=== PATIENT | female | born 1995 | race Caucasian/White ===

== ENCOUNTER 2023-03-08 15:38 | Outpatient (CLI) | payer BC, SELFPAY ==
[2023-03-08 15:49] LABS: Basophils Percent Auto 0.5 % (0.2-1.2); Eosinophils Absolute Auto 0.1 K/mm3 (0-0.3); Eosinophils Percent Auto 1.2 % (0-4.4); Hematocrit 39.4 % (37.0-47.0); Hemoglobin 12.8 g/dL (12.0-15.0); Immature Granulocyte Absolute 0.02 K/mm3 (0.00-0.031); Immature Granulocyte Percent A 0.2 % (0-0.5); Lymphocytes Absolute Auto 1.99 K/mm3 (0.9-3.2); Lymphocytes Percent Auto 22.6 % (18.3-44.2); Mean Corpuscular HGB Conc 32.5 g/dl (32-36); Mean Corpuscular Hemoglobin 27.1 pg (26-34); Mean Corpuscular Volume 83.5 fl (80-100); Mean Platelet Volume 9.2 fl (7.4-10.4); Monocytes Absolute Auto 0.6 K/mm3 (0.1-0.6); Monocytes Percent Auto 6.8 % (2.6-8.5); Neutrophils Absolute Auto 6.1 K/mm3 (1.3-6.7); Neutrophils Percent Auto 68.7 % (45.5-73.1); Platelet Count Result 428 k/mm3 (150-375); Red Blood Count 4.72 M/mm3 (4.2-5.4); Red Cell Distribution Width 15.9 % (11.5-14.5); White Blood Count 8.8 K/mm3 (4.5-10.0)
[2023-03-08 16:59] LABS: Alanine Aminotransferase 16 U/L (6-35); Albumin Level 4.4 g/dL (3.5-5.1); Alkaline Phosphatase 108 U/L (38-126); Anion Gap 4 mmol/L (8-16); Aspartate Amino Transferase 24 U/L (14-36); Bilirubin,Total 0.4 mg/dL (0.2-1.3); Blood Urea Nitrogen 12 mg/dL (7-17); CRP 1.6 mg/dL (<1.0); Calcium 8.8 mg/dL (8.4-10.2); Carbon Dioxide 31 mmol/L (22-30); Chloride 104 mmol/L (98-107); Estimated Glomerular Filt Rate > 60; Glucose 93 mg/dL (65-110); Potassium 4.3 mmol/L (3.4-5.0); Sodium 139 mmol/L (137-145)
[2023-03-08 17:12] LABS: Erythrocyte Sedimentation Rate 8 mm/hr (0-20)
[2023-03-08 17:32] LABS: Ferritin 6.57 ng/mL (6.24-137)
== END 2023-03-08 15:39 | disposition home or self-care (01) ==
LOC: ANHLAB 15:40
PROVIDERS: PCP Family Medicine; Visit Provider Internal Medicine Hematology & Oncology
DX: D75.838 Other thrombocytosis (principal)
CPT/HCPCS: 36415; 80053; 82728; 85025; 85652; 86140

== ENCOUNTER 2023-07-10 16:56 | Emergency (ER) | payer OTHER, SELFPAY ==
[2023-07-10 17:09] VITALS: BP 101/78; PULSE 104; RESP 16; TEMP 37.6; O2SAT 99
--- NOTE | 2023-07-10 17:13 | ED.URI ---
HPI - URI/Sore Throat General Chief Complaint: Upper Respiratory Infection Stated Complaint: Covid Time Seen by Provider: 07/10/23 17:15 Source: patient Mode of arrival: ambulatory Limitations: no limitations History of Present Illness HPI Narrative: Patient is a 27-year-old female who presents with congestion, fever, chills, body aches since yesterday. Patient tested positive for COVID yesterday and is requesting Paxlovid along with work note. Patient has had COVID in the past and is vaccinated. Denies any shortness of breath. Has been taking Tylenol and ibuprofen. 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 and has had exposure to COVID Related Data Home Medications Medication Instructions Recorded Confirmed biotin 10 mg-collagen 50 1 cap PO .qd 10/20/22 10/20/22 mg-keratin 500 pe-ydstnudzhlo-dlossua capsule buspirone 5 mg tablet 5 mg PO .PRN 10/20/22 10/20/22 escitalopram oxalate 20 mg tablet 20 mg PO DAILY 10/20/22 10/20/22 multivitamin (Daily Multi-Vitamin 1 tablet PO DAILY 10/20/22 10/20/22 tablet) dextroamphetamine-amphetamine ER PO 07/10/23 07/10/23 15 mg 24hr capsule,extend release Allergies Allergy/AdvReac Type Severity Reaction Status Date / Time No Known Allergies Allergy Unverified 07/10/23 17:32 Review of Systems Review of Systems: All systems reviewed & are unremarkable except as noted in HPI and below Constitutional: Constitutional: Reports body ache(s), Reports chills, Denies fatigue, Reports fever(s), Denies headache(s), Denies malaise and Denies weakness Eyes: Eyes: Denies blurry vision, Denies itchy eyes and Denies loss of vision ENT: Denies otalgia, Denies headache(s), Reports nasal congestion, Denies sinus pain and Denies sore throat Cardiovascular: Cardiovascular: Denies chest pain, Denies irregular heart rhythm and Denies dyspnea Respiratory: Respiratory: Denies cough and Denies dyspnea Gastrointestinal: Gastrointestinal: Denies abdominal pain, Denies diarrhea, Denies nausea and Denies vomiting Musculoskeletal: Musculoskeletal: Denies back pain, Denies myalgias and Denies arthralgias Integumentary/Breasts: Skin/Breast: Denies pruritus and Denies rash Neurologic: Denies headache(s), Denies loss of vision and Denies weakness Psychiatric: Psychiatric: Reports no additional psychiatric complaints Endocrine: Endocrine: Denies fatigue Allergic/Immunologic: Allergic/Immunologic: Denies itchy eyes PMFSH Past Medical History Medical History ADHD Anxiety Depression History of PCOS Surgical History Surgical History [place] teeth extracted (~2017) Family History Family History Father Hypertension Cerebrovascular accident Skin cancer Grandparent Hypertension Cerebrovascular accident Family history of heart disease in male family member before age 55 Diabetes mellitus Alcohol abuse Renal cancer Sibling Depression Other Family history of attention deficit hyperactivity disorder (ADHD) Family history of cardiovascular disease Social History Social History Smoking status: Never smoker Alcohol intake: current Alcohol use details: rarely Substance use: never Substance use type: does not use Lack of Transportation: No Lack of Food: Never True Current Housing: I Have Housing Concerned About Future Housing: No Difficulty Paying Gas/Electric Bills: No Difficulty Paying for Meds: No Currently Unemployed: No Education: Associate Degree Difficulty w/ Childcare or Family Care: No Living arrangements: with family Additional living arrangements comments: and son Occupation/Education: occupation Additional occupation/education comments: [employer] Gender identity (if verbalized by the patient): Female Sexual [place]
== END 2023-07-10 17:38 | disposition home or self-care (01) ==
PROVIDERS: Emergency Provider Nurse Practitioner Family
DX: U07.1 COVID-19 (principal); E28.2 Polycystic ovarian syndrome; F90.9 Attention-deficit hyperactivity disorder, unspecified type; F41.9 Anxiety disorder, unspecified; F32.A Depression, unspecified
CPT/HCPCS: 99213; G0463

== ENCOUNTER 2023-12-07 14:06 | Outpatient (CLI) | payer OTHER, SELFPAY ==
[2023-12-07 18:15] LABS: Basophils Percent Auto 0.5 % (0.2-1.2); Eosinophils Absolute Auto 0.2 K/mm3 (0-0.3); Eosinophils Percent Auto 1.9 % (0-4.4); Hematocrit 41.8 % (37.0-47.0); Hemoglobin 13.6 g/dL (12.0-15.0); Immature Granulocyte Absolute 0.01 K/mm3 (0.00-0.031); Immature Granulocyte Percent A 0.1 % (0-0.5); Lymphocytes Percent Auto 23.9 % (18.3-44.2); Mean Corpuscular HGB Conc 32.5 g/dl (32-36); Mean Corpuscular Hemoglobin 29.4 pg (26-34); Mean Corpuscular Volume 90.5 fl (80-100); Mean Platelet Volume 9.8 fl (7.4-10.4); Monocytes Absolute Auto 0.5 K/mm3 (0.1-0.6); Monocytes Percent Auto 5.6 % (2.6-8.5); Neutrophils Absolute Auto 5.7 K/mm3 (1.3-6.7); Platelet Count Result 427 k/mm3 (150-375); Red Blood Count 4.62 M/mm3 (4.2-5.4); Red Cell Distribution Width 13.2 % (11.5-14.5); White Blood Count 8.4 K/mm3 (4.5-10.0)
[2023-12-07 18:22] LABS: Alanine Aminotransferase 14 U/L (6-35); Albumin Level 4.1 g/dL (3.5-5.1); Alkaline Phosphatase 101 U/L (38-126); Amylase 81 U/L (30-110); Anion Gap 7 mmol/L (8-16); Aspartate Amino Transferase 35 U/L (14-36); Bilirubin,Total 0.3 mg/dL (0.2-1.3); Blood Urea Nitrogen 11 mg/dL (7-17); Calcium 8.9 mg/dL (8.4-10.2); Carbon Dioxide 30 mmol/L (22-30); Chloride 105 mmol/L (98-107); Estimated Glomerular Filt Rate > 60; Glucose 89 mg/dL (65-110); Lipase 83 U/L (23-300); Potassium 4.2 mmol/L (3.4-5.0); Sodium 142 mmol/L (137-145)
[2023-12-07 18:33] LABS: Hemoglobin A1C 4.8 % (<5.7)
[2023-12-13 05:52] LABS: Immunoglobulin A 186 mg/dL (47-310); TTG IGA AB <1.0 U/mL (<15.0)
== END 2023-12-07 14:07 | disposition home or self-care (01) ==
LOC: ANHGOSHLAB 14:08
PROVIDERS: PCP Family Medicine; Visit Provider Nurse Practitioner Family
DX: K52.9 Noninfective gastroenteritis and colitis, unspecified (principal); R10.11 Right upper quadrant pain; R11.14 Bilious vomiting; Z13.29 Encounter for screening for other suspected endocrine disorder; R73.03 Prediabetes
CPT/HCPCS: 36415; 80053; 82150; 82248; 82784; 83036; 83690; 84443; 85025; 86364

== ENCOUNTER 2023-12-14 12:56 | Outpatient (CLI) | payer OTHER, SELFPAY ==
--- NOTE | ~2023-12-14 | NM_ITS ---
EXAMINATION: NM hepatobiliary wo pharm DATE: 12/14/2023 15:27 INDICATION: Right upper quadrant abdominal pain. COMPARISON: None. TECHNIQUE: 4.9 mCi Tc-99m mebrofenin (Choletec) was administered intravenously. Scintigraphic images of the abdomen were obtained for one hour. Then, the patient drank 8 oz Ensure, and imaging was cont inued for 60 minutes. FINDINGS: There is normal clearance of radiotracer from the blood pool. There is homogeneous tracer u ptake by the liver. Activity progresses to the bowel and gallbladder. Gallbladder ejection fraction (GBEF) was 63%. Note that with this technique, normal GBEF >= 33%. IMPRESSION: 1. Normal hepatobiliary scintigraphy. Reviewed, dictated and finalized at location A. [facility]
== END 2023-12-14 12:57 | disposition home or self-care (01) ==
PROVIDERS: PCP Family Medicine; Visit Provider Nurse Practitioner Family
DX: K52.9 Noninfective gastroenteritis and colitis, unspecified (principal); R11.14 Bilious vomiting; R10.11 Right upper quadrant pain
CPT/HCPCS: 78226; A9537

== ENCOUNTER 2024-06-03 16:39 | Emergency (ER) | payer OTHER, SELFPAY ==
[2024-06-03 16:47] VITALS: BP 107/80; PULSE 99; RESP 16; TEMP 36.4; O2SAT 100
[2024-06-03 16:53] VITALS: BP 107/80; PULSE 99; RESP 16; TEMP 36.4; O2SAT 100
--- NOTE | 2024-06-03 16:54 | ED.NAVMDI ---
HPI - Nausea/Vomiting/Diarrhea General Chief complaint: Nausea/Vomiting/Diarrhea Stated complaint: VOMITING Time Seen by Provider: 06/03/24 16:57 Source: patient, RN notes reviewed and old records reviewed Mode of arrival: ambulatory Limitations: no limitations History of Present Illness HPI Narrative: 28-year-old female to [facility] with complaint intermittent nausea and vomiting that has become increasingly worse for the past 3 days. Patient states that she had her 1st increase of tirzepatide (for weight loss) 4 days ago. patient states that 3 days ago she had nausea with 3 episodes of vomiting. Patient reports that 2 days ago she had nausea without vomiting and that yesterday as she had nausea with 3 episodes of vomiting. patient reports that today she woke up from her sleep with nausea and vomiting at 2:00 a.m. and that she has been unable to keep anything down today. Patient states last urinary output at 6:00 a.m. today. Patient states she attempted to treat at home with Zofran but that the sensation of having it under her tongue increased her nausea and vomiting. Patient denies abdominal pain, flank pain, urinary changes, bowel changes, dizziness, headache, weakness. Respirations even and nonlabored in exam room. Patient smiling and appears pleasant during conversation with spouse during exam. no acute distress. Related Data Home Medications Medication Instructions Recorded Confirmed multivitamin (Daily Multi-Vitamin 1 tablet PO DAILY 10/20/22 04/23/24 tablet) dextroamphetamine-amphetamine 15 15 mg PO DAILY 01/02/24 04/23/24 mg tablet (Adderall) aripiprazole 10 mg tablet mg 06/03/24 Allergies Allergy/AdvReac Type Severity Reaction Status Date / Time No Known Allergies Allergy Verified 06/03/24 16:46 Review of Systems Review of Systems: All systems reviewed & are unremarkable except as noted in HPI and below Constitutional: Constitutional: Reports no additional constitutional complaints Eyes: Eyes: Reports no additional eye complaints ENT: Reports system reviewed and no additional complaints, except as documented Cardiovascular: Cardiovascular: Reports no additional cardiovascular complaints, Denies chest pain and Denies dyspnea Respiratory: Respiratory: Reports no additional respiratory complaints, Denies cough and Denies dyspnea Gastrointestinal: Gastrointestinal: Reports as per HPI, Denies abdominal pain, Denies belching, Denies bloating, Denies change in bowel habits, Denies constipation, Denies dysphagia, Denies diarrhea, Reports nausea, Reports vomiting and Denies hematemesis Musculoskeletal: Musculoskeletal: Reports no additional musculoskeletal complaints Neurologic: Reports system reviewed and no additional complaints, except as documented Psychiatric: Psychiatric: Reports no additional psychiatric complaints COUNTS INCLUDE 234 BEDS AT THE [facility] Past Medical History Medical History (Updated 06/03/24 @ 17:51 by Chandni Dinh APRN) ADHD Anxiety Bright red blood per rectum Chronic diarrhea Depression History of PCOS IBS (irritable bowel syndrome) Insulin resistance syndrome Nausea PCOS (polycystic ovarian syndrome) RUQ abdominal pain Vomiting bile Surgical History Surgical History [place] teeth extracted (~2017) Family History Family History Father Hypertension Cerebrovascular accident Skin cancer Grandparent Hypertension Cerebrovascular accident Family history of heart disease in male family member before age 55 Diabetes mellitus Alcohol abuse Renal cancer Sibling Depression Other Family history of attention deficit hyperactivity disorder (ADHD) Family history of cardiovascular disease Social History Social History Smoking status: Never smoker Alcohol intake: current Alcohol use details: rarely Subst
[2024-06-03] MEDS: ONDANSETRON HCL ODT 4 MG TABLET PO (17:38)
== END 2024-06-03 18:25 | disposition short-term general hospital (02) ==
PROVIDERS: Emergency Provider Nurse Practitioner Family; PCP Nurse Practitioner Family
DX: R11.2 Nausea with vomiting, unspecified (principal); T38.3X5A Adverse effect of insulin and oral hypoglycemic [antidiabetic] drugs, initial encounter; F90.9 Attention-deficit hyperactivity disorder, unspecified type; E28.2 Polycystic ovarian syndrome
CPT/HCPCS: 99213; A9270; G0463

== ENCOUNTER 2024-06-03 18:52 | Emergency (ER) | payer OTHER, SELFPAY ==
--- NOTE | ~2024-06-03 | CT_ITS ---
EXAMINATION: CT abdomen pelvis w con DATE: 06/04/2024 00:46 INDICATION: Lower abdominal pain and leukocytosis nausea and vomiting TECHNIQUE: Computed tomography (CT) of the abdomen and pelvis was performed with 100 mL Omnipaque-350 intravenous contrast. Automated exposure control and iterative reconstruction technique were employe d. The dose-length product was 305.99 mGy-cm. COMPARISON: None FINDINGS: 4 mm nodule at the lingula. Heart size is normal. No pericardial or pleural effusion. Liver, gallblad corina, spleen, pancreas, bilateral adrenal glands and kidneys are normal. There is mild colonic diverti culosis with a sigmoid predominance. There is no adjacent inflammatory change to suggest diverticuli tis . Small bowel and appendix are normal. Bladder, uterus and bilateral adnexa are unremarkable with 2 cm dominant follicle at the right ovary. No free intraperitoneal gas or fluid. No pathologically e nlarged abdominal or pelvic lymphadenopathy. Bones are unremarkable. IMPRESSION: 1. No acute intra-abdominal/pelvic process. Reviewed, dictated and finalized at location A.
[2024-06-03 19:03] VITALS: BP 106/65; PULSE 112; RESP 18; TEMP 36.4; O2SAT 100
[2024-06-03 20:41] LABS: Basophils Percent Auto 0.2 % (0.2-1.2); Hemoglobin 16.4 g/dL (12.0-15.0); Immature Granulocyte Absolute 0.03 K/mm3 (0.00-0.031); Immature Granulocyte Percent A 0.2 % (0-0.5); Lymphocytes Absolute Auto 1.13 K/mm3 (0.9-3.2); Lymphocytes Percent Auto 8.7 % (18.3-44.2); Mean Corpuscular HGB Conc 34.9 g/dl (32-36); Mean Corpuscular Hemoglobin 30.5 pg (26-34); Mean Corpuscular Volume 87.4 fl (80-100); Mean Platelet Volume 9.9 fl (7.4-10.4); Monocytes Absolute Auto 0.4 K/mm3 (0.1-0.6); Monocytes Percent Auto 3.1 % (2.6-8.5); Neutrophils Absolute Auto 11.3 K/mm3 (1.3-6.7); Neutrophils Percent Auto 87.8 % (45.5-73.1); Platelet Count Result 425 k/mm3 (150-375); Red Blood Count 5.38 M/mm3 (4.2-5.4); Red Cell Distribution Width 13.5 % (11.5-14.5); White Blood Count 12.9 K/mm3 (4.5-10.0)
[2024-06-03 20:52] LABS: Alanine Aminotransferase 12 U/L (6-35); Albumin Level 5.3 g/dL (3.5-5.1); Alkaline Phosphatase 93 U/L (38-126); Anion Gap 20 mmol/L (4-12); Aspartate Amino Transferase 24 U/L (14-36); Bilirubin,Total 0.8 mg/dL (0.2-1.3); Blood Urea Nitrogen 7 mg/dL (7-17); Calcium 9.9 mg/dL (8.4-10.2); Carbon Dioxide 20 mmol/L (22-30); Chloride 100 mmol/L (98-107); Estimated CRCL calculation 88 ml/min; Estimated Glomerular Filt Rate > 60; Glucose 71 mg/dL (65-110); Lipase 91 U/L (23-300); Potassium 4.5 mmol/L (3.4-5.0); Sodium 140 mmol/L (137-145)
[2024-06-03 20:53] LABS: Appearance Urine Cloudy (Clear); Bacteria Urine 4+ /hpf; Bilirubin Urine Negative (Negative); Blood Urine 1+ (Negative); Budding Yeast Urine Present /hpf; Color Urine Yellow (Yellow); Glucose Urine UA Negative (Negative); Hyaline Casts Urine Present /lpf; Ketones Urine 4+ mg/dL (Negative); Leukocyte Esterase Ur 1+ LEU/UL (Negative); Need Manual Microscopic Reviewed; Nitrate Urine Negative (Negative); Protein Urine 1+ mg/dL (Negative); Specific Grav Ur 1.024 (1.001-1.035); Squamous Epithelial Cell Urine Moderate /hpf (Few); WBC Urine 21-50 /hpf (0-3); pH Urine 5.5 (5.0-9.0)
[2024-06-03 20:56] LABS: Add Urine Microscopic? YES
[2024-06-03 23:00] VITALS: BP 119/86; PULSE 108; RESP 26; O2SAT 99
--- NOTE | 2024-06-03 23:02 | ED.NAVMDI ---
HPI - Nausea/Vomiting/Diarrhea General Chief complaint: Nausea/Vomiting/Diarrhea Stated complaint: nausea, vomiting Time Seen by Provider: 06/03/24 22:24 Source: patient Mode of arrival: ambulatory Limitations: no limitations History of Present Illness HPI Narrative: Patient is a 28-year-old female who presents the ED with report of nausea, vomiting. Patient reports she is on Zepbound for weight loss. She has been on this for the last 1 month and had her dose increased on Sunday. She developed nausea and vomiting initially after her dose, which has persisted throughout the weekend. She has been unable to keep any food or drink today. Reports diffuse abdominal cramping. Reports diarrhea this morning, denies rectal bleeding or melena. Denies fevers. Denies known sick contacts. Related Data Home Medications Medication Instructions Recorded Confirmed multivitamin (Daily Multi-Vitamin 1 tablet PO DAILY 10/20/22 04/23/24 tablet) dextroamphetamine-amphetamine 15 15 mg PO DAILY 01/02/24 04/23/24 mg tablet (Adderall) aripiprazole 10 mg tablet mg 06/03/24 Allergies Allergy/AdvReac Type Severity Reaction Status Date / Time No Known Allergies Allergy Verified 06/03/24 23:02 Review of Systems Review of Systems: CONSTITUTIONAL: Denies fever, chills, or sweats. GASTROINTESTINAL: See HPI. GENITOURINARY: Denies dysuria or hematuria. All systems reviewed & are unremarkable except as noted in HPI and below PMFSH Past Medical History Medical History ADHD Anxiety Bright red blood per rectum Chronic diarrhea Depression History of PCOS IBS (irritable bowel syndrome) Insulin resistance syndrome Nausea PCOS (polycystic ovarian syndrome) RUQ abdominal pain Vomiting bile Surgical History Surgical History [place] teeth extracted (~2017) Family History Family History Father Hypertension Cerebrovascular accident Skin cancer Grandparent Hypertension Cerebrovascular accident Family history of heart disease in male family member before age 55 Diabetes mellitus Alcohol abuse Renal cancer Sibling Depression Other Family history of attention deficit hyperactivity disorder (ADHD) Family history of cardiovascular disease Social History Social History Smoking status: Never smoker Alcohol intake: current Alcohol use details: rarely Substance use: never Substance use type: does not use Lack of Transportation: No Lack of Food: Never True Current Housing: I Have Housing Concerned About Future Housing: No Difficulty Paying Gas/Electric Bills: No Difficulty Paying for Meds: No Currently Unemployed: No Education: Associate Degree Difficulty w/ Childcare or Family Care: No Living arrangements: with family Additional living arrangements comments: and son Occupation/Education: occupation 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 HEAD: Normocephalic, atraumatic. ENT: MMs dry. RESPIRATORY: Airway patent, respirations nonlabored. Clear to auscultation bilaterally, no rales, rhonchi, wheezing. CARDIOVASCULAR: Tachycardic with regular rhythm without murmurs, rubs, or gallops. ABDOMINAL: Soft, mild tenderness in suprapubic region, left upper quadrant, epigastric region, nondistended. Normoactive BS. MUSCULOSKELETAL: Moves all extremities. No gross deformities. SKIN: Warm, dry, normal color. NEURO: A&O X3. Speech clear. PSYCHIATRIC:
[2024-06-03 23:05] LABS: Magnesium 2.1 mg/dL (1.6-2.3)
[2024-06-03] MEDS: SODIUM CHLORIDE 0.9% IV 1,000 ML 999 ML IV CONT ×2 (23:06)
[2024-06-03] MEDS: ONDANSETRON INJ 4 MG/2 ML VIAL IV PUSH (23:06)
[2024-06-03] MEDS: FAMOTIDINE 20 MG/2 ML VIAL IV PUSH (23:06)
[2024-06-04 00:21] LABS: Pregnancy On Board Control Positive; Urine Pregnancy Test Negative
[2024-06-04 17:04] LABS: BEDSIDEPREGUCG Negative
== END 2024-06-04 02:45 | disposition home or self-care (01) ==
PROVIDERS: Emergency Medicine; Emergency Provider Physician Assistant; PCP Nurse Practitioner Family
DX: E86.0 Dehydration (principal); R11.2 Nausea with vomiting, unspecified; N30.00 Acute cystitis without hematuria
CPT/HCPCS: 36415; 74177; 80053; 81001; 81025; 83690; 83735; 85025; 87086; 96361; 96365; 96375; 99284; A9270; J0696; J2405; J7030; Q9967

== ENCOUNTER 2024-08-20 07:28 | Day surgery (SDC) | payer OTHER, SELFPAY ==
[2024-01-21 14:34] VITALS: BMI 32.1
[2024-06-06 11:49] VITALS: BMI 34.9
[2024-08-08 09:27] VITALS: BMI 28.4
--- NOTE | 2024-08-19 15:33 | WPDANESEPPF ---
Anes - Initial Pre Proc Eval Procedure: Operation Date: 08/20/24 09:30 Proposed Procedures p Esophagogastroduodenoscopy - Dexter Duff MD s Diagnostic Colonoscopy - Dexter Duff MD Date/Time: 08/19/24 15:33 Surgeon: Dexter Duff MD Pre Op Diagnosis: Hemorrhage of anus and rectum, RUQ Pain Patient Data Age: 28 Gender: F Height: 1.55 m Weight: 68.3 kg Allergies Allergy/AdvReac Type Severity Reaction Status Date / Time No Known Allergies Allergy Verified 08/20/24 08:08 Home Medications Medication Instructions Recorded Confirmed Type dextroamphetamine-amphetamine 15 15 mg PO DAILY 01/02/24 08/20/24 History mg tablet (Adderall) sertraline 25 mg tablet (Zoloft) 25 mg PO DAILY 08/08/24 08/20/24 History Patient hx anesthesia problems: none Family hx anesthesia problems: none Results Review: All pre-operative results and documents have been reviewed as part of the pre-operative evaluation. [facility] Past Medical History Medical History ADHD Anxiety Bright red blood per rectum Chronic diarrhea Depression History of PCOS IBS (irritable bowel syndrome) Insulin resistance syndrome Nausea PCOS (polycystic ovarian syndrome) RUQ abdominal pain Vomiting bile Surgical History Surgical History [place] teeth extracted (~2017) Family History Family History Father Hypertension Cerebrovascular accident Skin cancer Grandparent Hypertension Cerebrovascular accident Family history of heart disease in male family member before age 55 Diabetes mellitus Alcohol abuse Renal cancer Sibling Depression Other Family history of attention deficit hyperactivity disorder (ADHD) Family history of cardiovascular disease Social History Social History Smoking status: Never smoker Alcohol intake: current Alcohol use details: rarely Substance use: never Substance use type: does not use Lack of Transportation: No Lack of Food: Never True Current Housing: I Have Housing Concerned About Future Housing: No Difficulty Paying Gas/Electric Bills: No Difficulty Paying for Meds: No Currently Unemployed: No Education: Associate Degree Difficulty w/ Childcare or Family Care: No Living arrangements: with family Additional living arrangements comments: and son Occupation/Education: occupation 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 Gender identity (if verbalized by the patient): Female Sexual Orientation (if Verbalized by the Patient): Lesbian, Paz, or Homosexual Spiritual care concerns: No Agree to blood products: Yes Anes - Eval Final PreProcedure Day of Procedure 08/19/24 15:33 Patient weight: overweight Heart: regular rate and rhythm Lungs: clear to auscultation Airway: Mallampati scale class II Neurological: alert and oriented Last oral intake: >/= 8 hours ASA classification: II Emergent: no Anesthetic plan: proceed Anesthesia type and monitoring: general GIVS and standard monitoring Results Review: All pre-operative results and documents have been reviewed as part of the pre-operative evaluation. Informed Consent: The patient's anesthetic plan and its attendant risks and benefits were discussed with the patient/family/POA. Questions were solicited and answers provided to the satisfaction of the patient/family/POA.
[2024-08-20 08:09] VITALS: BP 114/73; PULSE 89; RESP 15; TEMP 37.2; O2SAT 100
[2024-08-20] MEDS: LACTATED RINGERS 1,000 ML 150 ML IV CONT (08:12)
--- NOTE | 2024-08-20 08:17 | PM.HPGS ---
History of Present Illness History of Present Illness Consent: Risks, benefits, and alternatives have been discussed and questions answered. Patient agrees to proceed with procedure. Chief complaint: Hemorrhage of anus and rectum, RUQ Pain Narrative: Leeanna Ayala is a 28 year old female colonoscopy and EGD. Patient had 1 episode of bright red blood per rectum earlier this year. She has rather vague diffuse abdominal pain. Sometimes on the right side of her abdomen. She feels she has heartburn occasionally. This not always improved with Prilosec or Tums. EGD is be requested. Patient denies any weight loss. She has no ongoing bleeding. Bowel habits are occasionally irregular. Review of Systems Review of Systems: All systems reviewed & are unremarkable except as noted in HPI and below PMFSH Past Medical History Medical History ADHD Anxiety Bright red blood per rectum Chronic diarrhea Depression History of PCOS IBS (irritable bowel syndrome) Insulin resistance syndrome Nausea PCOS (polycystic ovarian syndrome) RUQ abdominal pain Vomiting bile Surgical History Surgical History [place] teeth extracted (~2017) Family History Family History Father Hypertension Cerebrovascular accident Skin cancer Grandparent Hypertension Cerebrovascular accident Family history of heart disease in male family member before age 55 Diabetes mellitus Alcohol abuse Renal cancer Sibling Depression Other Family history of attention deficit hyperactivity disorder (ADHD) Family history of cardiovascular disease Social History Social History Smoking status: Never smoker Alcohol intake: current Alcohol use details: rarely Substance use: never Substance use type: does not use Lack of Transportation: No Lack of Food: Never True Current Housing: I Have Housing Concerned About Future Housing: No Difficulty Paying Gas/Electric Bills: No Difficulty Paying for Meds: No Currently Unemployed: No Education: Associate Degree Difficulty w/ Childcare or Family Care: No Living arrangements: with family Additional living arrangements comments: and son Occupation/Education: occupation 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 Gender identity (if verbalized by the patient): Female Sexual Orientation (if Verbalized by the Patient): Lesbian, Paz, or Homosexual Spiritual care concerns: No Agree to blood products: Yes Meds Home Medications and Allergies Home Medications Medication Instructions Recorded Confirmed Type dextroamphetamine-amphetamine 15 15 mg PO DAILY 01/02/24 08/20/24 History mg tablet (Adderall) sertraline 25 mg tablet (Zoloft) 25 mg PO DAILY 08/08/24 08/20/24 History Allergies Allergy/AdvReac Type Severity Reaction Status Date / Time No Known Allergies Allergy Verified 08/20/24 08:08 Vital Signs Vital Signs - 24 hr 08/20/24 08:09 Temperature 99 F Pulse Rate 89 Respiratory Rate 15 Blood Pressure 114/73 Pulse Oximetry 100 Oxygen Delivery Room Air Exam Narrative: Co exam reveals patient to be alert. Stable. H exam is unremarkable. Patient is anicteric. Lungs are clear to auscultation and heart is without murmur or extra sounds. Abdomen bowel sounds are present soft nontender with no organomegaly. Digital external rectal exam is normal. Assessment and Plan Assessment and plan (1) Bright red blood per rectum: Code(s): K62.5 - Hemorrhage of anus and rectum Status: Acute Assessment and Plan: Patient had 1 episode of bright red blood per rectum. Colonoscopy requested to evaluate. High-fiber diet is suggested at this time. (2) RUQ abdominal pain: Code
[2024-08-20 09:49] VITALS: BP 95/66; PULSE 78; RESP 14; O2SAT 100
[2024-08-20 09:59] VITALS: BP 99/62; PULSE 66; RESP 18; O2SAT 100
[2024-08-20 10:09] VITALS: BP 96/64; PULSE 75; RESP 18; O2SAT 100
--- NOTE | 2024-08-20 12:53 | WPDANESPN ---
Anes - Prog Note Post-Op Date/Time: 08/20/24 12:53 Cardiovascular status: normal Respiratory status: normal Airway patency: baseline Mental status: baseline Post-Op hydration status: normal Vital Signs: Last Vital Signs Temp 37.2 C 08/20/24 08:09 Pulse 75 08/20/24 10:09 Resp 18 08/20/24 10:09 BP 96/64 L 08/20/24 10:09 Pulse Ox 100 08/20/24 10:09 O2 Del Method Room Air 08/20/24 10:09 Pain Score (VAS): 0 I/O: Intake & Output 08/19/24 08/20/24 08/20/24 23:59 07:59 15:59 Intake Total 400 Balance 400 Post-procedural complaints: none Patient Feedback: Patient satisfied with anesthetic care. Other Findings: Patient vital signs back to baseline. Patient denies nausea and vomiting. Patient's pain under control. Patient OK for discharge.
== END 2024-08-20 10:22 | disposition home or self-care (01) ==
PROVIDERS: PCP Nurse Practitioner Family; Visit Provider Internal Medicine Gastroenterology
PROC: 0DJ08ZZ Inspection of Upper Intestinal Tract, Via Natural or Artificial Opening Endoscopic (ICD-10-PCS; CPT 43235; principal; 2024-08-20 09:30)
PROC: 0DJD8ZZ Inspection of Lower Intestinal Tract, Via Natural or Artificial Opening Endoscopic (ICD-10-PCS; CPT 45378; 2024-08-20 09:30)
DX: K62.5 Hemorrhage of anus and rectum (principal); R10.11 Right upper quadrant pain
CPT/HCPCS: 45378; 43239